=== PATIENT | male | born 1960 | race Hispanic/Latino ===

== ENCOUNTER 2017-12-24 21:43 | Inpatient (IN) | payer MEDICAID ==
[~2017-12-24] VITALS: Ht 170.2 cm; Wt 101.5 kg
[2017-12-24] MEDS ORDERED: ONDANSETRON HCL 4 MG/2 ML VIAL ONE (23:27)
[2017-12-24] MEDS ORDERED: PANTOPRAZOLE SODIUM 40 MG TABLET.DR PO ONE (23:27)
[2017-12-24] MEDS ORDERED: FUROSEMIDE 10 MG/ML 2ML VIAL ONE (23:28)
[2017-12-24] MEDS ORDERED: MORPHINE SULFATE 2 MG/ML 1ML SYG ONE (23:28)
[2017-12-25] MEDS ORDERED: MORPHINE SULFATE 2 MG/ML 1ML SYG ONE ×3 (04:23→14:16)
[2017-12-25] MEDS ORDERED: ONDANSETRON HCL 4 MG/2 ML VIAL ONE ×3 (04:23→14:17)
[2017-12-25] MEDS ORDERED: FUROSEMIDE 10 MG/ML 2ML VIAL ONE ×2 (06:29→14:18)
[2017-12-25] MEDS ORDERED: DIATR MEGLU/DIATRIZOATE SODIUM 30 ML BOTTLE PO ONE (07:52)
[2017-12-25] MEDS ORDERED: PANTOPRAZOLE SODIUM 40 MG TABLET.DR PO ONE (08:42)
[2017-12-25] MEDS ORDERED: MORPHINE SULFATE 8 MG/ML VIAL ONE (10:14)
[2017-12-25] MEDS ORDERED: LIDOCAINE/PRILOCAINE CREAM 5GM TUBE TP ONE ×3 (13:11→13:20)
[2017-12-25 17:09] VITALS: BP 141/81
[2017-12-25] MEDS ORDERED: SODIUM CHLORIDE 0.9% 10 ML VIAL IVP PRN (18:00)
[2017-12-25] MEDS ORDERED: MORPHINE SULFATE 4 MG/1ML SYG IVP PRN (18:00)
[2017-12-25] MEDS ORDERED: FURO20TA4 PO (18:08)
[2017-12-25] MEDS ORDERED: OXYC30TA89 PO (18:08)
[2017-12-25] MEDS ORDERED: FENT25PAT TD (18:08)
[2017-12-25] MEDS ORDERED: SULF1TAB42 PO (18:08)
[2017-12-25 19:10] VITALS: BP 141/85
[2017-12-25] MEDS: FUROSEMIDE 10 MG/ML 2ML VIAL IVP SCH (21:09)
[2017-12-25] MEDS: ONDANSETRON HCL 4 MG/2 ML VIAL IVP PRN (22:34)
[2017-12-25 23:05] VITALS: BP 126/65
[2017-12-26] MEDS ORDERED: GLUCAGON 1MG KIT 1 MG ML IM PRN (02:30)
[2017-12-26] MEDS ORDERED: VANCOMYCIN PROTOCOL PER PHARMACY IV SCH ×2 (02:30→03:15)
[2017-12-26] MEDS ORDERED: HYDRALAZINE HCL 20 MG/ML VIAL IV PRN (02:30)
[2017-12-26] MEDS ORDERED: DEXTROSE 50%-WATER 50 ML DISP.SYRIN IV PRN (02:30)
[2017-12-26] MEDS ORDERED: ACETAMINOPHEN 325 MG TAB PO PRN (02:30)
[2017-12-26] MEDS ORDERED: LACTULOSE 20 GM/30 ML UDCUP PO PRN (02:30)
[2017-12-26] MEDS ORDERED: POTASSIUM CHLORIDE 20MEQ/100ML 100 ML IV PRN (02:30)
[2017-12-26] MEDS ORDERED: FENTANYL 25 MCG/HR PATCH TD SCH (02:45)
[2017-12-26] MEDS: MORPHINE SULFATE 2 MG/ML 1ML SYG IVP PRN ×4 (03:07→23:45)
[2017-12-26] MEDS: ONDANSETRON HCL 4 MG/2 ML VIAL IVP PRN (03:07)
[2017-12-26 03:20] VITALS: BP 123/75
[2017-12-26 03:58] LABS: BASOPHILS % (AUTO) 0.6 % (0.0-5.0); EOSINOPHILS % (AUTO) 0.3 % (0.0-8.0); HEMATOCRIT 29.7 % (42-54); LYMPHOCYTES % (AUTO) 17.1 % (21.0-51.0); MEAN CORPUSCULAR HEMOGLOBIN 30.4 pg (27.0-33.0); MEAN CORPUSCULAR HGB CONC 34.1 g/dL (32.0-36.0); MEAN CORPUSCULAR VOLUME 89.1 fL (79-99); MONOCYTES % (AUTO) 12.3 % (3.0-13.0); NEUTROPHILS % (AUTO) 69.7 % (40.0-77.0); PLATELET COUNT (AUTO) 452 K/uL (130-400); RED BLOOD CELL COUNT(AUTO) 3.33 MIL/uL (4.50-6.20); RED CELL DISTRIBUTION WIDTH 19.5 % (11.0-15.5)
[2017-12-26] MEDS ORDERED: VANCOMYCIN 1GM+NS 250ML 500 ML IV SCH (04:00)
[2017-12-26 04:26] LABS: CREATININE 0.9 mg/dL (0.5-1.5); POTASSIUM 3.8 mmol/L (3.5-5.1)
[2017-12-26] MEDS: FUROSEMIDE 10 MG/ML 2ML VIAL IVP SCH ×3 (04:44→16:58)
[2017-12-26] MEDS ORDERED: COMPOUND IV REFRIGERATED 1 EACH IVSOLN MISC PRN (05:45)
[2017-12-26 07:00] VITALS: BP 142/86
[2017-12-26] MEDS: INSULIN HUMULIN R 100 UNIT/ML 3ML SQ SCH ×4 (07:04→20:45)
[2017-12-26] MEDS: ENOXAPARIN SODIUM 30 MG/0.3 ML SQ SCH (08:06)
[2017-12-26] MEDS: PANTOPRAZOLE SODIUM 40 MG TABLET.DR PO SCH (08:06)
[2017-12-26] MEDS: OXYCODONE HCL 30 MG TABLET PO PRN ×2 (08:07→16:58)
[2017-12-26] MEDS ORDERED: FAMOTIDINE 20MG TAB 20 MG TAB PO SCH (09:00)
[2017-12-26] MEDS: LIDOCAINE HCL 5% OINT 36GM TUBE TP SCH (11:05)
[2017-12-26] MEDS: HONEY 1 APPL/ML TUBE TP SCH (11:05)
[2017-12-26 12:40] VITALS: BP 143/74
[2017-12-26 16:00] VITALS: BP 131/77
[2017-12-26] MEDS: VANCOMYCIN 1.5 GM in SODIUM CHLORIDE 0.9% 250 ML IV SCH (16:57)
[2017-12-26 19:05] VITALS: BP 129/78
[2017-12-26 23:05] VITALS: BP 134/79
[2017-12-27] MEDS: FUROSEMIDE 10 MG/ML 2ML VIAL IVP SCH ×2 (02:21→11:06)
[2017-12-27 03:20] VITALS: BP 106/75
[2017-12-27 03:39] LABS: BASOPHILS % (AUTO) 0.5 % (0.0-5.0); EOSINOPHILS % (AUTO) 0.2 % (0.0-8.0); HEMATOCRIT 32.6 % (42-54); LYMPHOCYTES % (AUTO) 14.2 % (21.0-51.0); MEAN CORPUSCULAR HEMOGLOBIN 30.1 pg (27.0-33.0); MEAN CORPUSCULAR HGB CONC 33.4 g/dL (32.0-36.0); NEUTROPHILS % (AUTO) 76.1 % (40.0-77.0); PLATELET COUNT (AUTO) 455 K/uL (130-400); RED BLOOD CELL COUNT(AUTO) 3.62 MIL/uL (4.50-6.20); RED CELL DISTRIBUTION WIDTH 19.1 % (11.0-15.5); WHITE BLOOD COUNT (AUTO) 11.9 K/uL (4.8-10.8)
[2017-12-27 03:47] LABS: POTASSIUM 4.4 mmol/L (3.5-5.1)
[2017-12-27] MEDS: VANCOMYCIN 1.5 GM in SODIUM CHLORIDE 0.9% 250 ML IV SCH (04:29)
[2017-12-27] MEDS: INSULIN HUMULIN R 100 UNIT/ML 3ML SQ SCH ×2 (06:04→12:47)
[2017-12-27] MEDS: PANTOPRAZOLE SODIUM 40 MG TABLET.DR PO SCH (06:37)
[2017-12-27 08:00] VITALS: BP 121/70
[2017-12-27] MEDS: MORPHINE SULFATE 2 MG/ML 1ML SYG IVP PRN (08:42)
[2017-12-27] MEDS: ENOXAPARIN SODIUM 30 MG/0.3 ML SQ SCH (08:46)
[2017-12-27 12:00] VITALS: BP 116/72
[2017-12-27] MEDS: OXYCODONE HCL 30 MG TABLET PO PRN (14:26)
[2017-12-27] MEDS: LIDOCAINE HCL 5% OINT 36GM TUBE TP SCH (14:27)
[2017-12-27] MEDS: HONEY 1 APPL/ML TUBE TP SCH (14:27)
[2018-03-23] MEDS ORDERED: hydromorphone PO (00:54)
[2018-03-23] MEDS ORDERED: [UNRECOGNIZED DRUG - OTHER] PO (12:22)
== END 2017-12-27 16:20 | disposition home health service (06) | DRG 861 ==
LOC: EDH 21:43 → EDHIP 21:44 → 3BH 12-25 17:13
PROVIDERS: ADMIT Internal Medicine Hematology & Oncology; ATTEND Internal Medicine Hematology & Oncology
DX: G89.3 Neoplasm related pain (acute) (chronic) (principal); C49.9 Malignant neoplasm of connective and soft tissue, unspecified; D64.9 Anemia, unspecified; F17.200 Nicotine dependence, unspecified, uncomplicated; I10 Essential (primary) hypertension; M06.9 Rheumatoid arthritis, unspecified; M19.90 Unspecified osteoarthritis, unspecified site; Z92.21 Personal history of antineoplastic chemotherapy; Z80.3 Family history of malignant neoplasm of breast; Z80.52 Family history of malignant neoplasm of bladder
CPT/HCPCS: 36415; 74178; 80048; 82948; 85025; 87070; 87076; J1650; J1815; J1940; J2270; J2405; J3370; J7030; Q9963

== ENCOUNTER 2018-01-05 06:43 | Emergency (ER) | payer MEDICAID ==
[~2018-01-05 06:43] MED LIST: FENT25PAT TD; FURO20TA4 PO; OXYC30TA89 PO; SULF1TAB42 PO
[2018-01-05 07:10] LABS: BASOPHILS % (AUTO) 0.6 % (0.0-5.0); EOSINOPHILS % (AUTO) 0.3 % (0.0-8.0); HEMATOCRIT 32.8 % (42-54); LYMPHOCYTES % (AUTO) 14.5 % (21.0-51.0); MEAN CORPUSCULAR HEMOGLOBIN 29.5 pg (27.0-33.0); MEAN CORPUSCULAR HGB CONC 32.7 g/dL (32.0-36.0); MEAN CORPUSCULAR VOLUME 90.3 fL (79-99); MONOCYTES % (AUTO) 9.5 % (3.0-13.0); NEUTROPHILS % (AUTO) 75.1 % (40.0-77.0); PLATELET COUNT (AUTO) 423 K/uL (130-400); RED BLOOD CELL COUNT(AUTO) 3.63 MIL/uL (4.50-6.20); RED CELL DISTRIBUTION WIDTH 18.9 % (11.0-15.5); WHITE BLOOD COUNT (AUTO) 14.3 K/uL (4.8-10.8)
[2018-01-05 07:44] LABS: B-TYPE NATRIURETIC PEPTIDE 82 pg/mL (0-100)
[2018-01-05 08:16] LABS: POTASSIUM 4.5 mmol/L (3.5-5.1)
[2018-01-05 08:17] LABS: CREATININE 0.8 mg/dL (0.5-1.5)
[2018-01-05 08:25] LABS: ALBUMIN 2.1 g/dL (3.5-5.0); BILIRUBIN,TOTAL 0.3 mg/dL (0.2-1.0); TOTAL PROTEIN, SERUM 7.1 g/dL (6.0-8.3)
[2018-03-23] MEDS ORDERED: hydromorphone PO (00:54)
[2018-03-23] MEDS ORDERED: [UNRECOGNIZED DRUG - OTHER] PO (12:22)
== END 2018-01-05 09:16 | disposition home or self-care (01) ==
LOC: EDH 06:43
DX: R60.0 Localized edema (principal); E88.09 Other disorders of plasma-protein metabolism, not elsewhere classified; C76.2 Malignant neoplasm of abdomen; L98.499 Non-pressure chronic ulcer of skin of other sites with unspecified severity; M19.90 Unspecified osteoarthritis, unspecified site; Z86.14 Personal history of Methicillin resistant Staphylococcus aureus infection; Z90.49 Acquired absence of other specified parts of digestive tract; Z98.890 Other specified postprocedural states; Z72.0 Tobacco use
CPT/HCPCS: 36415; 71046; 80053; 82550; 83880; 84484; 85025; 93005; 93970

== ENCOUNTER 2018-02-09 05:49 | Inpatient (IN) | payer MEDICAID ==
[~2018-02-09] VITALS: Ht 172.7 cm; Wt 102.1 kg
[2018-02-09 07:10] LABS: APPEARANCE,URINE Clear (CLEAR); BILIRUBIN,URINE Negative (NEGATIVE); COLOR,URINE Yellow (YELLOW); GLUCOSE, URINE (UA) Negative (NEGATIVE); KETONES,URINE Negative (NEGATIVE); LEUKOCYTE ESTERASE ,URINE Negative (NEGATIVE); NITRATE,URINE Negative (NEGATIVE); OCCULT BLOOD,URINE Negative (NEGATIVE); PROTEIN,URINE Trace (NEGATIVE); UROBILINOGEN,URINE 0.2 mg/dL (0.2-1.0)
[2018-02-09 07:15] LABS: AMYLASE 32 U/L (25-115); CREATININE 0.8 mg/dL (0.5-1.5); LIPASE 137 U/L (114-286); POTASSIUM 4.3 mmol/L (3.5-5.1)
[2018-02-09 07:22] LABS: ALBUMIN 1.9 g/dL (3.5-5.0); BILIRUBIN,TOTAL 0.3 mg/dL (0.2-1.0); TOTAL PROTEIN, SERUM 7.6 g/dL (6.0-8.3)
[2018-02-09] MEDS ORDERED: SODIUM CHLORIDE 0.9% 1000ML 1,000 ML IV ONE (07:28)
[2018-02-09] MEDS ORDERED: KETOROLAC TROMETHAMINE 30MG/ML ONE (07:28)
[2018-02-09] MEDS ORDERED: MORPHINE SULFATE 2 MG/ML 1ML SYG ONE (07:35)
[2018-02-09] MEDS ORDERED: ONDANSETRON ODT 4 MG TAB ONE (07:55)
[2018-02-09 07:56] LABS: RBC,URINE 0-1 /HPF (0-1)
[2018-02-09 07:57] LABS: BACTERIA,URINE Rare /HPF (None Seen); SQUAMOUS EPITHELIAL CELL,UR 0-2 /HPF (0-2); WBC,URINE 0-1 /HPF (0-1)
[2018-02-09 08:12] LABS: BASOPHILS % (AUTO) 1.2 % (0.0-5.0); EOSINOPHILS % (AUTO) 0.4 % (0.0-8.0); HEMATOCRIT 30.1 % (42-54); LYMPHOCYTES % (AUTO) 16.2 % (21.0-51.0); MEAN CORPUSCULAR HEMOGLOBIN 28.2 pg (27.0-33.0); MEAN CORPUSCULAR HGB CONC 32.2 g/dL (32.0-36.0); MEAN CORPUSCULAR VOLUME 87.4 fL (79-99); MONOCYTES % (AUTO) 10.3 % (3.0-13.0); NEUTROPHILS % (AUTO) 71.9 % (40.0-77.0); NUCLEATED RED BLOOD CELLS 0.1 % (0.0-0.19); PLATELET COUNT (AUTO) 390 K/uL (130-400); RED BLOOD CELL COUNT(AUTO) 3.45 MIL/uL (4.50-6.20); RED CELL DISTRIBUTION WIDTH 17.5 % (11.0-15.5); WHITE BLOOD COUNT (AUTO) 13.8 K/uL (4.8-10.8)
[2018-02-09] MEDS ORDERED: MORPHINE SULFATE 4 MG/1ML SYG ONE (09:10)
[2018-02-09] MEDS ORDERED: CEFTRIAXONE SODIUM 1 GM ONE (09:47)
[2018-02-09] MEDS ORDERED: AMOX500C2 PO (13:21)
[2018-02-09] MEDS ORDERED: HYDR-4068 PO (13:24)
[2018-02-09] MEDS ORDERED: ESOM40SU PO (13:24)
[2018-02-09] MEDS ORDERED: BUME1TAB12 PO (13:24)
[2018-02-09] MEDS ORDERED: LIDO5CRE18 TP (13:25)
[2018-02-09 14:00] VITALS: BP 101/65
[2018-02-09] MEDS: SODIUM CHLORIDE 0.9% 1000ML 1,000 ML IV SCH ×3 (14:00→23:25)
[2018-02-09] MEDS: MORPHINE SULFATE 4 MG/1ML SYG IVP PRN ×3 (14:24→22:44)
[2018-02-09] MEDS: CEFTRIAXONE SODIUM 1 GM IVP SCH (14:25)
[2018-02-09] MEDS ORDERED: HONE44PA TP (15:34)
[2018-02-09 16:00] VITALS: BP 128/72
[2018-02-09 20:19] VITALS: BP 119/75
[2018-02-09] MEDS: PANTOPRAZOLE SODIUM 40 MG TABLET.DR PO SCH (20:36)
[2018-02-09] MEDS: HYDROCODONE/ACETAMINOPHEN 10/325 MG TAB PO PRN (20:36)
[2018-02-09] MEDS: AMOXICILLIN 500 MG CAPSULE PO SCH (20:36)
[2018-02-09] MEDS ORDERED: HONEY 1 APPL/ML TUBE TP SCH (21:00)
[2018-02-09] MEDS ORDERED: LIDOCAINE HCL 2% JELLY 5 ML TP ONE (21:00)
[2018-02-10] VITALS (7 sets, daily range): BP systolic 123–145; BP diastolic 67–76
[2018-02-10] MEDS: AMOXICILLIN 500 MG CAPSULE PO SCH ×4 (00:07→17:08)
[2018-02-10] MEDS: HYDROCODONE/ACETAMINOPHEN 10/325 MG TAB PO PRN ×6 (00:47→22:12)
[2018-02-10] MEDS: MORPHINE SULFATE 4 MG/1ML SYG IVP PRN ×2 (02:36→07:00)
[2018-02-10] MEDS: PANTOPRAZOLE SODIUM 40 MG TABLET.DR PO SCH ×2 (08:53→20:10)
[2018-02-10] MEDS: BUMETANIDE 1 MG TAB PO SCH (09:02)
[2018-02-10] MEDS ORDERED: HYDROMORPHONE 4MG/ML 1ML VIAL IVP PRN (10:15)
[2018-02-10] MEDS ORDERED: SIMETHICONE 80 MG TAB.CHEW ONE (10:23)
[2018-02-10] MEDS ORDERED: HYDROMORPHONE HCL 0.5 MG/0.5 ML ML ONE (10:32)
[2018-02-10] MEDS: SIMETHICONE 80 MG TAB.CHEW PO SCH ×3 (12:08→20:10)
[2018-02-10] MEDS ORDERED: IOPAMIDOL-370 75 ML VIAL IV ONE (12:51)
[2018-02-10] MEDS: CEFTRIAXONE SODIUM 1 GM IVP SCH (12:58)
[2018-02-10] MEDS: LIDOCAINE HCL 5% OINT 36GM TUBE TP PRN (12:58)
[2018-02-10] MEDS: HYDROMORPHONE HCL 0.5 MG/0.5 ML ML IVP PRN ×2 (14:28→20:12)
[2018-02-10] MEDS: HONEY 1 APPL/ML TUBE TP SCH (20:10)
[2018-02-11] MEDS: AMOXICILLIN 500 MG CAPSULE PO SCH ×4 (00:09→16:52)
[2018-02-11] MEDS: HYDROMORPHONE HCL 0.5 MG/0.5 ML ML IVP PRN ×6 (00:10→21:18)
[2018-02-11] MEDS: HYDROCODONE/ACETAMINOPHEN 10/325 MG TAB PO PRN ×4 (02:51→16:14)
[2018-02-11 03:24] VITALS: BP 138/77
[2018-02-11 03:51] LABS: HEMATOCRIT 25.6 % (42-54); MEAN CORPUSCULAR HGB CONC 33.6 g/dL (32.0-36.0); MEAN CORPUSCULAR VOLUME 86.5 fL (79-99); PLATELET COUNT (AUTO) 304 K/uL (130-400); RED BLOOD CELL COUNT(AUTO) 2.95 MIL/uL (4.50-6.20); WHITE BLOOD COUNT (AUTO) 10.8 K/uL (4.8-10.8)
[2018-02-11 04:10] LABS: CREATININE 0.6 mg/dL (0.5-1.5); POTASSIUM 4.2 mmol/L (3.5-5.1)
[2018-02-11] MEDS: SODIUM CHLORIDE 0.9% 1000ML 1,000 ML IV SCH (06:00)
[2018-02-11 08:00] VITALS: BP 101/62
[2018-02-11] MEDS: SIMETHICONE 80 MG TAB.CHEW PO SCH ×4 (09:01→21:17)
[2018-02-11] MEDS: HONEY 1 APPL/ML TUBE TP SCH ×2 (09:01→21:17)
[2018-02-11] MEDS: PANTOPRAZOLE SODIUM 40 MG TABLET.DR PO SCH ×2 (09:01→21:17)
[2018-02-11] MEDS: BUMETANIDE 1 MG TAB PO SCH (09:01)
[2018-02-11] MEDS ORDERED: LACTULOSE 20 GM/30 ML UDCUP PO PRN (10:00)
[2018-02-11 11:50] VITALS: BP 107/59
[2018-02-11] MEDS: FUROSEMIDE 10 MG/ML 2ML VIAL IV SCH ×2 (12:35→16:52)
[2018-02-11] MEDS: CEFTRIAXONE SODIUM 1 GM IVP SCH (12:35)
[2018-02-11] MEDS: POLYETHYLENE GLYCOL 3350 17 GM POWD.PACK PO SCH (13:02)
[2018-02-11 16:00] VITALS: BP 106/67
[2018-02-11 19:36] VITALS: BP 120/80
[2018-02-11] MEDS: ONDANSETRON HCL MDV 20ML 2 MG/ML VIAL IVP PRN (21:18)
[2018-02-11 23:33] VITALS: BP 121/67
[2018-02-12] MEDS: HYDROMORPHONE 1 MG/1 ML AMP IVP PRN ×7 (00:13→21:41)
[2018-02-12] MEDS: AMOXICILLIN 500 MG CAPSULE PO SCH ×4 (00:13→18:32)
[2018-02-12] MEDS: LIDOCAINE HCL 5% OINT 36GM TUBE TP PRN (01:23)
[2018-02-12 03:35] VITALS: BP 95/61
[2018-02-12 03:40] LABS: CREATININE 0.7 mg/dL (0.5-1.5); POTASSIUM 3.4 mmol/L (3.5-5.1)
[2018-02-12 04:19] LABS: HEMATOCRIT 25.7 % (42-54); MEAN CORPUSCULAR HEMOGLOBIN 29.1 pg (27.0-33.0); MEAN CORPUSCULAR HGB CONC 33.9 g/dL (32.0-36.0); MEAN CORPUSCULAR VOLUME 86.1 fL (79-99); PLATELET COUNT (AUTO) 322 K/uL (130-400); RED BLOOD CELL COUNT(AUTO) 2.99 MIL/uL (4.50-6.20); RED CELL DISTRIBUTION WIDTH 17.1 % (11.0-15.5); WHITE BLOOD COUNT (AUTO) 11.4 K/uL (4.8-10.8)
[2018-02-12 05:23] VITALS: BP 117/67
[2018-02-12 08:00] VITALS: BP 100/74
[2018-02-12] MEDS: PANTOPRAZOLE SODIUM 40 MG TABLET.DR PO SCH ×2 (08:09→21:40)
[2018-02-12] MEDS: SIMETHICONE 80 MG TAB.CHEW PO SCH ×4 (08:09→21:40)
[2018-02-12] MEDS: HYDROCODONE/ACETAMINOPHEN 10/325 MG TAB PO PRN ×2 (08:11→13:20)
[2018-02-12] MEDS: BUMETANIDE 1 MG TAB PO SCH (08:14)
[2018-02-12] MEDS: HONEY 1 APPL/ML TUBE TP SCH ×2 (09:00→21:39)
[2018-02-12 11:00] VITALS: BP 112/57
[2018-02-12] MEDS: POLYETHYLENE GLYCOL 3350 17 GM POWD.PACK PO SCH (11:43)
[2018-02-12] MEDS: ONDANSETRON HCL MDV 20ML 2 MG/ML VIAL IVP PRN ×2 (11:44→21:57)
[2018-02-12] MEDS: CEFTRIAXONE SODIUM 1 GM IVP SCH (13:21)
[2018-02-12 16:00] VITALS: BP 110/72
[2018-02-12 20:00] VITALS: BP 105/77
[2018-02-13] VITALS (8 sets, daily range): BP systolic 97–135; BP diastolic 59–86
[2018-02-13] MEDS: AMOXICILLIN 500 MG CAPSULE PO SCH ×4 (00:37→18:37)
[2018-02-13] MEDS: HYDROMORPHONE 1 MG/1 ML AMP IVP PRN ×7 (00:46→20:54)
[2018-02-13 04:23] LABS: CREATININE 0.7 mg/dL (0.5-1.5); POTASSIUM 3.7 mmol/L (3.5-5.1)
[2018-02-13] MEDS: ONDANSETRON HCL MDV 20ML 2 MG/ML VIAL IVP PRN (07:44)
[2018-02-13] MEDS: HONEY 1 APPL/ML TUBE TP SCH (09:00)
[2018-02-13] MEDS: BUMETANIDE 1 MG TAB PO SCH (09:00)
[2018-02-13] MEDS: SIMETHICONE 80 MG TAB.CHEW PO SCH ×4 (09:31→20:48)
[2018-02-13] MEDS: POLYETHYLENE GLYCOL 3350 17 GM POWD.PACK PO SCH (09:31)
[2018-02-13] MEDS: PANTOPRAZOLE SODIUM 40 MG TABLET.DR PO SCH ×2 (09:31→20:48)
[2018-02-13] MEDS: FUROSEMIDE 10 MG/ML 2ML VIAL IV SCH ×2 (10:40→18:37)
[2018-02-13] MEDS: CEFTRIAXONE SODIUM 1 GM IVP SCH (13:46)
[2018-02-14] VITALS: BP 98/75
[2018-02-14] MEDS: HYDROMORPHONE 1 MG/1 ML AMP IVP PRN ×6 (00:33→15:32)
[2018-02-14] MEDS: AMOXICILLIN 500 MG CAPSULE PO SCH ×3 (00:33→12:37)
[2018-02-14] MEDS: FUROSEMIDE 10 MG/ML 2ML VIAL IV SCH (00:38)
[2018-02-14] MEDS: HONEY 1 APPL/ML TUBE TP SCH ×2 (02:10→10:04)
[2018-02-14 04:00] VITALS: BP 99/62
[2018-02-14 04:15] LABS: CREATININE 0.9 mg/dL (0.5-1.5); POTASSIUM 3.3 mmol/L (3.5-5.1)
[2018-02-14 08:00] VITALS: BP 106/72
[2018-02-14] MEDS: PANTOPRAZOLE SODIUM 40 MG TABLET.DR PO SCH (09:44)
[2018-02-14] MEDS: SIMETHICONE 80 MG TAB.CHEW PO SCH ×2 (09:44→12:37)
[2018-02-14] MEDS ORDERED: FUROSEMIDE 10 MG/ML 4ML VIAL IV SCH (09:45)
[2018-02-14] MEDS: POLYETHYLENE GLYCOL 3350 17 GM POWD.PACK PO SCH (09:45)
[2018-02-14] MEDS: BUMETANIDE 1 MG TAB PO SCH (09:58)
[2018-02-14] MEDS ORDERED: POTASSIUM CHLORIDE 10% ELIXIR 20 MEQ/15 ML UDCUP PO PRN (10:00)
[2018-02-14] MEDS ORDERED: LIDOCAINE HCL-MPF 1% 2ML VIAL IVP PRN (10:00)
[2018-02-14] MEDS ORDERED: POTASSIUM CHLORIDE 20 MEQ ERTAB PO PRN (10:00)
[2018-02-14] MEDS ORDERED: POTASSIUM CHLORIDE 20MEQ/100ML 100 ML IV PRN (10:00)
[2018-02-14 11:00] VITALS: BP 119/76
[2018-02-14] MEDS ORDERED: HEPARIN SODIUM/PF 100UNIT/ML 5ML SYRINGE IV SCH (15:00)
[2018-03-23] MEDS ORDERED: hydromorphone PO (00:54)
[2018-03-23] MEDS ORDERED: [UNRECOGNIZED DRUG - OTHER] PO (12:22)
== END 2018-02-14 16:05 | disposition hospice, home (50) | DRG 861 ==
LOC: EDH 05:49 → OBSVTOIN 05:50 → EDHIP 05:50 → 4AH 13:01 → 4BH 18:55 → 3BH 23:09
PROVIDERS: ADMIT Internal Medicine Hematology & Oncology; ATTEND Internal Medicine Hematology & Oncology
DX: G89.3 Neoplasm related pain (acute) (chronic) (principal); E43 Unspecified severe protein-calorie malnutrition; C49.9 Malignant neoplasm of connective and soft tissue, unspecified; R10.9 Unspecified abdominal pain; D64.9 Anemia, unspecified; F17.200 Nicotine dependence, unspecified, uncomplicated; I10 Essential (primary) hypertension; M06.9 Rheumatoid arthritis, unspecified; D72.829 Elevated white blood cell count, unspecified; Z68.34 Body mass index [BMI] 34.0-34.9, adult; Z80.3 Family history of malignant neoplasm of breast; Z80.52 Family history of malignant neoplasm of bladder
CPT/HCPCS: 36415; 71045; 74178; 80048; 80053; 81001; 82140; 82150; 83690; 85025; 85027; 87040; A4218; J0696; J1170; J1642; J1885; J1940; J2270; J7030; Q9967

== ENCOUNTER 2018-03-10 08:53 | Inpatient (IN) | payer MEDICAID ==
[~2018-03-10] VITALS: Ht 172.7 cm; Wt 88.0 kg
[~2018-03-10 08:53] MED LIST changes: +AMOX500C2 PO; +BUME1TAB12 PO; +ESOM40SU PO; -FENT25PAT TD; -FURO20TA4 PO; +HONE44PA TP; +HYDR-4068 PO; +LIDO5CRE18 TP; -OXYC30TA89 PO; -SULF1TAB42 PO
[2018-03-10] MEDS ORDERED: ONDANSETRON HCL MDV 20ML 2 MG/ML VIAL ONE (09:30)
[2018-03-10] MEDS ORDERED: HYDROMORPHONE 1 MG/1 ML AMP ONE ×2 (09:30→13:27)
[2018-03-10] MEDS ORDERED: SODIUM CHLORIDE 0.9% 1000ML 1,000 ML IV ONE ×2 (09:30→13:19)
[2018-03-10 09:34] LABS: BASOPHILS % (AUTO) 0.5 % (0.0-5.0); EOSINOPHILS % (AUTO) 0.3 % (0.0-8.0); HEMATOCRIT 28.9 % (42-54); LYMPHOCYTES % (AUTO) 9.5 % (21.0-51.0); MEAN CORPUSCULAR HEMOGLOBIN 27.8 pg (27.0-33.0); MEAN CORPUSCULAR HGB CONC 33.5 g/dL (32.0-36.0); MONOCYTES % (AUTO) 9.7 % (3.0-13.0); PLATELET COUNT (AUTO) 446 K/uL (130-400); RED BLOOD CELL COUNT(AUTO) 3.48 MIL/uL (4.50-6.20); RED CELL DISTRIBUTION WIDTH 17.5 % (11.0-15.5); WHITE BLOOD COUNT (AUTO) 16.2 K/uL (4.8-10.8)
[2018-03-10 09:55] LABS: ALBUMIN 1.9 g/dL (3.5-5.0); BILIRUBIN,TOTAL 0.2 mg/dL (0.2-1.0); CREATININE 0.7 mg/dL (0.5-1.5); POTASSIUM 4.2 mmol/L (3.5-5.1)
[2018-03-10 10:01] LABS: APPEARANCE,URINE Clear (CLEAR); BILIRUBIN,URINE Negative (NEGATIVE); COLOR,URINE Yellow (YELLOW); GLUCOSE, URINE (UA) Negative (NEGATIVE); KETONES,URINE Negative (NEGATIVE); LEUKOCYTE ESTERASE ,URINE Negative (NEGATIVE); NITRATE,URINE Negative (NEGATIVE); OCCULT BLOOD,URINE Negative (NEGATIVE); PH,URINE 7.5 (5.0-8.0); PROTEIN,URINE Trace (NEGATIVE)
[2018-03-10 13:58] VITALS: BP 99/41
[2018-03-10] MEDS ORDERED: CITA-106 PO (15:00)
[2018-03-10] MEDS ORDERED: HYDR-3421 PO (15:00)
[2018-03-10] MEDS ORDERED: PANT40TA PO (15:00)
[2018-03-10] MEDS ORDERED: PROM25TA7 PO (15:00)
[2018-03-10] MEDS ORDERED: DEXA4TAB PO (15:00)
[2018-03-10] MEDS ORDERED: SIME80TA66 PO (15:00)
[2018-03-10] MEDS ORDERED: MORP15 PO (15:00)
[2018-03-10] MEDS ORDERED: METO5TAB7 PO (15:00)
[2018-03-10] MEDS ORDERED: ONDANSETRON HCL MDV 20ML 2 MG/ML VIAL IVP PRN (15:45)
[2018-03-10] MEDS ORDERED: HYDROMORPHONE 1 MG/1 ML AMP IVP PRN (15:45)
[2018-03-10 16:00] VITALS: BP 102/64
[2018-03-10] MEDS: SODIUM CHLORIDE 0.9% 1000ML 1,000 ML IV SCH ×2 (16:04→20:46)
[2018-03-10] MEDS: HYDROMORPHONE HCL 0.5 MG/0.5 ML ML IVP PRN ×2 (16:43→20:46)
[2018-03-10 20:00] VITALS: BP 116/60
[2018-03-10] MEDS ORDERED: LIDOCAINE HCL 2% JELLY 5 ML TP ONE (20:55)
[2018-03-10] MEDS ORDERED: GLUCAGON 1MG KIT 1 MG ML IM PRN (23:30)
[2018-03-10] MEDS ORDERED: VANCOMYCIN 1GM+NS 250ML 250 ML IV SCH (23:30)
[2018-03-10] MEDS ORDERED: DEXTROSE 50%-WATER 50 ML DISP.SYRIN IV PRN (23:30)
[2018-03-11 00:07] VITALS: BP 100/57
[2018-03-11] MEDS: HYDROMORPHONE HCL 0.5 MG/0.5 ML ML IVP PRN ×7 (00:49→21:02)
[2018-03-11 05:08] LABS: HEMATOCRIT 30.2 % (42-54); MEAN CORPUSCULAR HEMOGLOBIN 27.1 pg (27.0-33.0); MEAN CORPUSCULAR HGB CONC 31.9 g/dL (32.0-36.0); MEAN CORPUSCULAR VOLUME 84.9 fL (79-99); PLATELET COUNT (AUTO) 512 K/uL (130-400); RED BLOOD CELL COUNT(AUTO) 3.55 MIL/uL (4.50-6.20); RED CELL DISTRIBUTION WIDTH 17.6 % (11.0-15.5); WHITE BLOOD COUNT (AUTO) 18.6 K/uL (4.8-10.8)
[2018-03-11 05:35] LABS: CREATININE 0.7 mg/dL (0.5-1.5); POTASSIUM 4.7 mmol/L (3.5-5.1); THYROID STIMULATING HORMONE 0.72 uIU/mL (0.36-3.74)
[2018-03-11] MEDS: INSULIN HUMULIN R 100 UNIT/ML 3ML SQ SCH ×4 (05:51→20:48)
[2018-03-11 08:00] VITALS: BP 115/68
[2018-03-11] MEDS: SODIUM CHLORIDE 0.9% 1000ML 1,000 ML IV SCH (08:53)
[2018-03-11] MEDS ORDERED: FAMOTIDINE 20MG TAB 20 MG TAB PO SCH (09:00)
[2018-03-11] MEDS ORDERED: LIDOCAINE HCL 5% OINT 36GM TUBE TP PRN (09:30)
[2018-03-11] MEDS ORDERED: HYDROXYZINE HCL 25 MG TABLET PO PRN (10:00)
[2018-03-11] MEDS ORDERED: MORPHINE SULFATE 15 MG TABLET.SA PO PRN (10:00)
[2018-03-11] MEDS ORDERED: PROMETHAZINE HCL 25 MG TABLET PO PRN (10:00)
[2018-03-11] MEDS: AMOXICILLIN 500 MG CAPSULE PO SCH ×4 (10:11→20:42)
[2018-03-11] MEDS: HONEY 1 APPL/ML TUBE TP SCH ×2 (10:13→20:43)
[2018-03-11 11:00] VITALS: BP 116/51
[2018-03-11] MEDS ORDERED: VANCOMYCIN PROTOCOL PER PHARMACY IV SCH (12:15)
[2018-03-11] MEDS ORDERED: COMPOUND IV REFRIGERATED 1 EACH IVSOLN MISC PRN ×3 (12:15→20:45)
[2018-03-11] MEDS ORDERED: SIMETHICONE 80 MG TAB.CHEW PO SCH (13:00)
[2018-03-11] MEDS ORDERED: VANCOMYCIN 2 GM in SODIUM CHLORIDE 0.9% 500ML 500 ML IV ONE (13:00)
[2018-03-11] MEDS ORDERED: HYDROXYZINE HCL 25 MG TABLET PO SCH (14:00)
[2018-03-11 16:00] VITALS: BP 125/60
[2018-03-11] MEDS ORDERED: LACTULOSE 20 GM/30 ML UDCUP PO PRN (17:30)
[2018-03-11 19:30] VITALS: BP 104/63
[2018-03-11] MEDS: VANCOMYCIN 1.25 GM in SODIUM CHLORIDE 0.9% 250 ML IV SCH (20:43)
[2018-03-11] MEDS ORDERED: LIDOCAINE HCL 5% OINT 36GM TUBE TP SCH (21:00)
[2018-03-11 23:00] VITALS: BP 106/62
[2018-03-12] MEDS: HYDROMORPHONE HCL 0.5 MG/0.5 ML ML IVP PRN ×7 (00:13→22:03)
[2018-03-12] MEDS: SODIUM CHLORIDE 0.9% 1000ML 1,000 ML IV SCH (01:05)
[2018-03-12 03:15] VITALS: BP 98/56
[2018-03-12 04:06] LABS: HEMATOCRIT 25.3 % (42-54); MEAN CORPUSCULAR HEMOGLOBIN 28.9 pg (27.0-33.0); MEAN CORPUSCULAR HGB CONC 34.3 g/dL (32.0-36.0); MEAN CORPUSCULAR VOLUME 84.2 fL (79-99); PLATELET COUNT (AUTO) 394 K/uL (130-400); RED BLOOD CELL COUNT(AUTO) 3.01 MIL/uL (4.50-6.20); RED CELL DISTRIBUTION WIDTH 17.8 % (11.0-15.5); WHITE BLOOD COUNT (AUTO) 14.1 K/uL (4.8-10.8)
[2018-03-12 04:17] LABS: CREATININE 0.6 mg/dL (0.5-1.5); POTASSIUM 3.5 mmol/L (3.5-5.1)
[2018-03-12] MEDS: VANCOMYCIN 1.25 GM in SODIUM CHLORIDE 0.9% 250 ML IV SCH ×2 (05:12→12:33)
[2018-03-12 06:00] VITALS: BP 116/64
[2018-03-12] MEDS: INSULIN HUMULIN R 100 UNIT/ML 3ML SQ SCH ×4 (06:18→21:00)
[2018-03-12] MEDS ORDERED: PANTOPRAZOLE SODIUM 40 MG TABLET.DR PO SCH (07:30)
[2018-03-12] MEDS ORDERED: NON-FORMULARY MEDICATION 1 EACH (Metolazone 5 MG) PO SCH (09:00)
[2018-03-12] MEDS ORDERED: DEXAMETHASONE 4 MG TAB PO SCH (09:00)
[2018-03-12] MEDS ORDERED: METOLAZONE 2.5 MG TABLET PO SCH (09:00)
[2018-03-12] MEDS: AMOXICILLIN 500 MG CAPSULE PO SCH ×4 (09:06→20:47)
[2018-03-12] MEDS: HONEY 1 APPL/ML TUBE TP SCH ×2 (09:07→22:03)
[2018-03-12] MEDS ORDERED: HYDROMORPHONE 1 MG/1 ML AMP ONE ×4 (09:45→18:30)
[2018-03-12] MEDS ORDERED: FUROSEMIDE 10 MG/ML 2ML VIAL IV SCH (09:45)
[2018-03-12] MEDS ORDERED: CITALOPRAM 20 MG TABLET PO SCH (09:45)
[2018-03-12 11:00] VITALS: BP 107/58
[2018-03-12] MEDS ORDERED: ALBUMIN (HUMAN) 25% 50 ML IV SCH (11:00)
[2018-03-12 17:09] VITALS: BP 104/64
[2018-03-12 19:00] VITALS: BP 112/66
[2018-03-13] VITALS (7 sets, daily range): BP systolic 91–137; BP diastolic 58–81
[2018-03-13] MEDS: HYDROMORPHONE HCL 0.5 MG/0.5 ML ML IVP PRN ×7 (01:03→19:11)
[2018-03-13] MEDS: VANCOMYCIN 1.25 GM in SODIUM CHLORIDE 0.9% 250 ML IV SCH ×2 (01:40→13:06)
[2018-03-13 05:04] LABS: HEMATOCRIT 26.7 % (42-54); MEAN CORPUSCULAR HEMOGLOBIN 26.6 pg (27.0-33.0); MEAN CORPUSCULAR HGB CONC 31.7 g/dL (32.0-36.0); MEAN CORPUSCULAR VOLUME 83.8 fL (79-99); PLATELET COUNT (AUTO) 393 K/uL (130-400); RED BLOOD CELL COUNT(AUTO) 3.18 MIL/uL (4.50-6.20); RED CELL DISTRIBUTION WIDTH 17.8 % (11.0-15.5); WHITE BLOOD COUNT (AUTO) 12.8 K/uL (4.8-10.8)
[2018-03-13 05:29] LABS: CREATININE 0.6 mg/dL (0.5-1.5); POTASSIUM 3.6 mmol/L (3.5-5.1)
[2018-03-13] MEDS: INSULIN HUMULIN R 100 UNIT/ML 3ML SQ SCH (07:30)
[2018-03-13] MEDS ORDERED: FUROSEMIDE 10 MG/ML 4ML VIAL IV SCH (09:15)
[2018-03-13] MEDS ORDERED: HYDROMORPHONE 1 MG/1 ML AMP ONE ×5 (09:54→22:26)
[2018-03-13] MEDS: AMOXICILLIN 500 MG CAPSULE PO SCH ×4 (10:06→21:23)
[2018-03-13] MEDS: HONEY 1 APPL/ML TUBE TP SCH ×2 (10:07→21:00)
[2018-03-14] MEDS: VANCOMYCIN 1.25 GM in SODIUM CHLORIDE 0.9% 250 ML IV SCH ×2 (00:51→11:55)
[2018-03-14] MEDS ORDERED: HYDROMORPHONE 1 MG/1 ML AMP ONE ×4 (01:22→11:23)
[2018-03-14 04:00] VITALS: BP 96/57
[2018-03-14 05:18] LABS: HEMATOCRIT 27.5 % (42-54); MEAN CORPUSCULAR HEMOGLOBIN 26.9 pg (27.0-33.0); MEAN CORPUSCULAR HGB CONC 32.2 g/dL (32.0-36.0); MEAN CORPUSCULAR VOLUME 83.6 fL (79-99); PLATELET COUNT (AUTO) 384 K/uL (130-400); RED BLOOD CELL COUNT(AUTO) 3.29 MIL/uL (4.50-6.20); RED CELL DISTRIBUTION WIDTH 17.4 % (11.0-15.5); WHITE BLOOD COUNT (AUTO) 13.5 K/uL (4.8-10.8)
[2018-03-14 05:41] LABS: CREATININE 0.6 mg/dL (0.5-1.5); POTASSIUM 3.4 mmol/L (3.5-5.1)
[2018-03-14 08:00] VITALS: BP 105/70
[2018-03-14] MEDS: HONEY 1 APPL/ML TUBE TP SCH ×2 (08:40→19:55)
[2018-03-14] MEDS: AMOXICILLIN 500 MG CAPSULE PO SCH ×4 (08:40→19:54)
[2018-03-14] MEDS: SIMETHICONE 80 MG TAB.CHEW PO PRN ×2 (11:02→19:54)
[2018-03-14] MEDS: HYDROMORPHONE 1 MG/1 ML AMP IVP PRN ×5 (11:30→23:43)
[2018-03-14 12:00] VITALS: BP 109/74
[2018-03-14 16:00] VITALS: BP 106/72
[2018-03-14 19:40] VITALS: BP 112/70
[2018-03-14 23:53] VITALS: BP 122/71
[2018-03-15] MEDS: VANCOMYCIN 1.25 GM in SODIUM CHLORIDE 0.9% 250 ML IV SCH (01:03)
[2018-03-15] MEDS: HYDROMORPHONE 1 MG/1 ML AMP IVP PRN ×4 (02:48→11:51)
[2018-03-15 03:15] VITALS: BP 98/64
[2018-03-15 05:07] LABS: HEMATOCRIT 26.7 % (42-54); MEAN CORPUSCULAR HEMOGLOBIN 27.7 pg (27.0-33.0); MEAN CORPUSCULAR HGB CONC 33.3 g/dL (32.0-36.0); PLATELET COUNT (AUTO) 370 K/uL (130-400); RED BLOOD CELL COUNT(AUTO) 3.22 MIL/uL (4.50-6.20); RED CELL DISTRIBUTION WIDTH 17.4 % (11.0-15.5); WHITE BLOOD COUNT (AUTO) 14.5 K/uL (4.8-10.8)
[2018-03-15 05:19] LABS: CREATININE 0.6 mg/dL (0.5-1.5); POTASSIUM 3.5 mmol/L (3.5-5.1)
[2018-03-15] MEDS ORDERED: HEPARIN SODIUM/PF 100UNIT/ML 5ML SYRINGE IV SCH (07:45)
[2018-03-15 08:00] VITALS: BP 119/72
[2018-03-15] MEDS: AMOXICILLIN 500 MG CAPSULE PO SCH (08:29)
[2018-03-15] MEDS: HONEY 1 APPL/ML TUBE TP SCH (08:30)
[2018-03-23] MEDS ORDERED: hydromorphone PO (00:54)
[2018-03-23] MEDS ORDERED: [UNRECOGNIZED DRUG - OTHER] PO (12:22)
== END 2018-03-15 12:50 | disposition home or self-care (01) | DRG 380 ==
LOC: EDH 08:53 → EDHIP 08:54 → 3AH 14:04
PROVIDERS: ADMIT Internal Medicine Hematology & Oncology; ATTEND Internal Medicine Hematology & Oncology
DX: L89.152 Pressure ulcer of sacral region, stage 2 (principal); C49.9 Malignant neoplasm of connective and soft tissue, unspecified; E87.1 Hypo-osmolality and hyponatremia; E44.1 Mild protein-calorie malnutrition; E87.70 Fluid overload, unspecified; L03.90 Cellulitis, unspecified; E86.0 Dehydration; I10 Essential (primary) hypertension; M06.9 Rheumatoid arthritis, unspecified; F17.200 Nicotine dependence, unspecified, uncomplicated; F32.9 Major depressive disorder, single episode, unspecified; G89.4 Chronic pain syndrome; Z51.5 Encounter for palliative care; B95.8 Unspecified staphylococcus as the cause of diseases classified elsewhere; Z28.21 Immunization not carried out because of patient refusal; Z68.29 Body mass index [BMI] 29.0-29.9, adult
CPT/HCPCS: 36415; 80048; 80053; 80202; 81003; 82150; 82948; 83036; 83690; 84443; 85025; 85027; 93970; 97039; J1170; J1642; J1940; J3370; J7030; J7040; P9047

== ENCOUNTER 2018-04-16 16:25 | Inpatient (IN) | payer MEDICAID ==
[~2018-04-16] VITALS: Ht 157.5 cm; Wt 93.2 kg
[~2018-04-16 16:25] MED LIST changes: +CITA-106 PO; -ESOM40SU PO; +HYDR-3421 PO; -HYDR-4068 PO; +METO5TAB7 PO; +PANT40TA PO; +PROM25TA7 PO; +SIME80TA66 PO; +[UNRECOGNIZED DRUG - OTHER] PO; +hydromorphone PO
[2018-04-16] MEDS ORDERED: SODIUM CHLORIDE 0.9% 1000ML 2,000 ML IV ONE (16:57)
[2018-04-16 17:13] LABS: BASOPHILS % (AUTO) 0.8 % (0.0-5.0); EOSINOPHILS % (AUTO) 0.4 % (0.0-8.0); LYMPHOCYTES % (AUTO) 10.8 % (21.0-51.0); MEAN CORPUSCULAR HEMOGLOBIN 29.6 pg (27.0-33.0); MEAN CORPUSCULAR HGB CONC 35.4 g/dL (32.0-36.0); MEAN CORPUSCULAR VOLUME 83.7 fL (79-99); MONOCYTES % (AUTO) 7.7 % (3.0-13.0); NEUTROPHILS % (AUTO) 80.3 % (40.0-77.0); NUCLEATED RED BLOOD CELLS 0.1 % (0.0-0.19); PLATELET COUNT (AUTO) 340 K/uL (130-400); RED BLOOD CELL COUNT(AUTO) 2.87 MIL/uL (4.50-6.20); RED CELL DISTRIBUTION WIDTH 18.4 % (11.0-15.5); WHITE BLOOD COUNT (AUTO) 18.9 K/uL (4.8-10.8)
[2018-04-16 17:29] LABS: INR 1.57 (0.85-1.15); PARTIAL THROMBOPLASTIN TIME 39.3 SEC (26.3-35.5); PROTHROMBIN TIME 16.3 SEC (9.6-11.6)
[2018-04-16 17:33] LABS: ALBUMIN 1.6 g/dL (3.5-5.0); BILIRUBIN,TOTAL 1.2 mg/dL (0.2-1.0); POTASSIUM 4.1 mmol/L (3.5-5.1); TOTAL PROTEIN, SERUM 4.8 g/dL (6.0-8.3)
[2018-04-16 17:53] LABS: APPEARANCE,URINE Clear (CLEAR); BILIRUBIN,URINE Negative (NEGATIVE); COLOR,URINE Dark Yellow (YELLOW); GLUCOSE, URINE (UA) Negative (NEGATIVE); KETONES,URINE Negative (NEGATIVE); LEUKOCYTE ESTERASE ,URINE Negative (NEGATIVE); NITRATE,URINE Negative (NEGATIVE); OCCULT BLOOD,URINE Negative (NEGATIVE); PROTEIN,URINE Negative (NEGATIVE)
[2018-04-16] MEDS ORDERED: SODIUM CHLORIDE 0.9% 1000ML 1,000 ML IV ONE (18:23)
[2018-04-16] MEDS ORDERED: ALBUMIN (HUMAN) 25% 100 ML IV ONE (18:41)
[2018-04-17] VITALS (7 sets, daily range): BP systolic 91–128; BP diastolic 50–86
[2018-04-17] MEDS ORDERED: SODIUM CHLORIDE 0.9% 1000ML 1,000 ML IV ONE (01:56)
[2018-04-17] MEDS ORDERED: HYDROMORPHONE 4MG/ML 1ML VIAL ONE (02:25)
[2018-04-17] MEDS ORDERED: NITROGLYCERIN 0.4 MG SL TAB SL PRN (06:15)
[2018-04-17] MEDS ORDERED: POTASSIUM CHLORIDE 10% ELIXIR 20 MEQ/15 ML UDCUP PO PRN (06:15)
[2018-04-17] MEDS ORDERED: LACTULOSE 20 GM/30 ML UDCUP PO PRN (06:15)
[2018-04-17] MEDS ORDERED: GUAIFENESIN-DM 200/20 MG 10 ML PO PRN (06:15)
[2018-04-17] MEDS ORDERED: POTASSIUM CHLORIDE 20MEQ/100ML 100 ML IV PRN (06:15)
[2018-04-17] MEDS ORDERED: ACETAMINOPHEN 325 MG TAB PO PRN ×2 (06:15)
[2018-04-17] MEDS ORDERED: LIDOCAINE HCL-MPF 1% 2ML VIAL IJ PRN (06:15)
[2018-04-17] MEDS ORDERED: POTASSIUM CHLORIDE 20 MEQ ERTAB PO PRN (06:15)
[2018-04-17] MEDS ORDERED: CLONIDINE HCL 0.1 MG TABLET PO PRN (06:15)
[2018-04-17] MEDS ORDERED: SODIUM CHLORIDE 0.9% 10 ML VIAL IVP SCH (06:15)
[2018-04-17] MEDS ORDERED: ONDANSETRON HCL MDV 20ML 2 MG/ML VIAL IVP PRN (06:30)
[2018-04-17 06:41] LABS: HEMATOCRIT 28.1 % (42-54); MEAN CORPUSCULAR HEMOGLOBIN 28.4 pg (27.0-33.0); MEAN CORPUSCULAR HGB CONC 33.4 g/dL (32.0-36.0); MEAN CORPUSCULAR VOLUME 85.2 fL (79-99); PLATELET COUNT (AUTO) 330 K/uL (130-400); RED CELL DISTRIBUTION WIDTH 18.8 % (11.0-15.5); WHITE BLOOD COUNT (AUTO) 20.2 K/uL (4.8-10.8)
[2018-04-17 06:49] LABS: CREATININE 0.7 mg/dL (0.5-1.5); POTASSIUM 3.5 mmol/L (3.5-5.1)
[2018-04-17] MEDS ORDERED: CEFTRIAXONE 1GM/D5W 50ML 50 ML IV SCH (07:30)
[2018-04-17] MEDS ORDERED: LORA1TAB3 PO (08:06)
[2018-04-17] MEDS: CEFTRIAXONE SODIUM 1 GM IVP SCH (08:29)
[2018-04-17] MEDS: FAMOTIDINE 20MG TAB 20 MG TAB PO SCH ×2 (08:30→20:35)
[2018-04-17] MEDS: SODIUM CHLORIDE 0.9% 1000ML 1,000 ML IV SCH ×2 (08:30→22:46)
[2018-04-17] MEDS: HYDROMORPHONE 1 MG/1 ML AMP IVP PRN ×2 (08:39→12:37)
[2018-04-17] MEDS ORDERED: HYDROXYZINE HCL 25 MG TABLET PO PRN (12:15)
[2018-04-17] MEDS ORDERED: HYDROMORPHONE PCA 10 MG/50 ML 50 ML IV PRN (12:15)
[2018-04-17] MEDS ORDERED: NALOXONE HCL 0.4 MG/1 ML ML IVP PRN (12:15)
[2018-04-17] MEDS ORDERED: GADOBENATE DIMEGLUMINE 20 ML IV ONE (13:58)
[2018-04-17] MEDS ORDERED: VANCOMYCIN PROTOCOL PER PHARMACY IV SCH (16:00)
[2018-04-17] MEDS ORDERED: SODIUM CHLORIDE 0.9% 1000ML 1,000 ML IV SCH (16:00)
[2018-04-17] MEDS ORDERED: VANCOMYCIN 2 GM in SODIUM CHLORIDE 0.9% 500ML 500 ML IV ONE (17:00)
[2018-04-17] MEDS ORDERED: COMPOUND IV REFRIGERATED 1 EACH IVSOLN MISC PRN (17:00)
[2018-04-17] MEDS: LORAZEPAM 1 MG TABLET PO SCH (20:35)
[2018-04-17] MEDS ORDERED: HYDROMORPHONE 1 MG/1 ML AMP IVP PRN (21:15)
[2018-04-18] MEDS: VANCOMYCIN 750MG + NS 250 ML IV SCH ×4 (00:53→09:14)
[2018-04-18 03:40] VITALS: BP 94/32
[2018-04-18] MEDS ORDERED: IPRATROPIUM 0.5 MG/2.5 ML INH IH PRN (04:45)
[2018-04-18 05:07] LABS: HEMATOCRIT 26.2 % (42-54); MEAN CORPUSCULAR HEMOGLOBIN 29.5 pg (27.0-33.0); MEAN CORPUSCULAR HGB CONC 34.5 g/dL (32.0-36.0); MEAN CORPUSCULAR VOLUME 85.4 fL (79-99); PLATELET COUNT (AUTO) 300 K/uL (130-400); RED BLOOD CELL COUNT(AUTO) 3.06 MIL/uL (4.50-6.20); RED CELL DISTRIBUTION WIDTH 19.1 % (11.0-15.5); WHITE BLOOD COUNT (AUTO) 23.9 K/uL (4.8-10.8)
[2018-04-18 05:29] LABS: CREATININE 0.9 mg/dL (0.5-1.5); POTASSIUM 3.6 mmol/L (3.5-5.1)
[2018-04-18 07:30] VITALS: BP 93/56
[2018-04-18 08:49] LABS: ABG BASE EXCESS -0.2 mmol/L (-2.0-3.0); ABG HCO3 21.1 mmol/L (21.0-28.0); ABG OXYGEN SATURATION 94.6 % (95.0-99.0); ABG PCO2 26 mmHg (35-48)
[2018-04-18] MEDS ORDERED: [UNRECOGNIZED DRUG - OTHER] PO SCH (09:00)
[2018-04-18] MEDS: LORAZEPAM 1 MG TABLET PO SCH (09:00)
[2018-04-18] MEDS: FAMOTIDINE 20MG TAB 20 MG TAB PO SCH (09:00)
[2018-04-18] MEDS: CEFTRIAXONE SODIUM 1 GM IVP SCH (09:13)
[2018-04-18] MEDS: IPRATROPIUM 0.5 MG/2.5 ML INH IH SCH ×2 (10:13→10:14)
[2018-04-18 12:00] VITALS: BP 108/67
[2018-04-18] MEDS ORDERED: PHARMACY COMMUNICATION MISC SCH (14:00)
[2018-04-18] MEDS ORDERED: NYSTATIN 15 GM POWDER TP SCH (14:00)
[2018-04-18] MEDS ORDERED: BISACODYL 10 MG SUPP.RECT RC PRN (14:00)
[2018-04-18] MEDS ORDERED: HONEY 1 APPL/ML TUBE TP SCH (18:00)
[2018-04-18] MEDS ORDERED: IPRATROPIUM 0.5 MG/2.5 ML INH IH SCH (18:00)
== END 2018-04-18 15:14 | disposition hospice, inpatient (51) | DRG 426 ==
LOC: EDH 16:25 → EDHIP 16:26 → 4CH 04-17 06:00
PROVIDERS: ADMIT Internal Medicine Hematology & Oncology; ATTEND Internal Medicine Hematology & Oncology
DX: E87.1 Hypo-osmolality and hyponatremia (principal); E43 Unspecified severe protein-calorie malnutrition; E87.3 Alkalosis; L89.153 Pressure ulcer of sacral region, stage 3; C49.9 Malignant neoplasm of connective and soft tissue, unspecified; R18.8 Other ascites; E87.5 Hyperkalemia; L89.022 Pressure ulcer of left elbow, stage 2; E87.8 Other disorders of electrolyte and fluid balance, not elsewhere classified; R65.10 Systemic inflammatory response syndrome (SIRS) of non-infectious origin without acute organ dysfunction; G83.9 Paralytic syndrome, unspecified; M19.90 Unspecified osteoarthritis, unspecified site; G89.29 Other chronic pain; E86.0 Dehydration; D63.8 Anemia in other chronic diseases classified elsewhere; Z86.14 Personal history of Methicillin resistant Staphylococcus aureus infection; Z85.89 Personal history of malignant neoplasm of other organs and systems; Z74.01 Bed confinement status
CPT/HCPCS: 36415; 36600; 71045; 74021; 80048; 80053; 80202; 81003; 82803; 83605; 83880; 84484; 85025; 85027; 85610; 85730; 87040; 87186; 93005; 94640; 94664; A4218; A9577; J0696; J1170; J3370; J7030; J7040; P9046